=== PATIENT | female | born 1935 | race Caucasian/White ===

== ENCOUNTER 2018-12-17 16:50 | Observation (INO) | payer OTHER ==
--- NOTE | 2018-12-17 16:53 | PDOC ---
History of Present Illness - General Chief Complaint: Syncope/Near Syncope Stated Complaint: SYNCOPE Time Seen by Provider: 12/17/18 16:51 - History of Present Illness Initial Comments: 83yo F with PMH of HTN presenting after a syncopal episode. The episode occurred one hour prior to arrival. Patient has been outside for the [employer] in the hot weather. Patient had a cup of tea this morning, but admittedly did not eat or drink very much. After two bites of a hotdog, patient suddenly felt lightheaded and felt like she was going to pass out. She leaned on her who witnessed her lose consciousness for about thirty seconds. He denies seeing her exhibit any jerking/shaking motion consistent with seizure- like activity but did notice that she seemed to be hiccuping. Patient had one episode of NBNB vomit and did not feel like herself until about a half hour after the syncopal episode. Did not fall or hit her head. No history of prior syncopal episodes. Past History - Past Medical History Allergies/Adverse Reactions: Allergies Allergy/AdvReac Type Severity Reaction Status Date / Time No Known Allergies Allergy Verified 12/17/18 16:53 Home Medications: Ambulatory Orders Alendronate Sodium/Vitamin D3 [Fosamax Plus D 70 mg-5,600 Iu vIT d] 1 each PO Q7D 12/17/18 Olmesartan/Hydrochlorothiazide [Benicar Hct 40-12.5 mg Tablet] 1 each PO DAILY 12/17/18 Timolol Maleate 1 drop OU AM 12/17/18 Travoprost [Travatan Z] 1 drop OU HS 12/17/18 HTN: Yes - Surgical History Abdominal Surgery: Yes (HERNIA) Appendectomy: Yes - Suicide/Smoking/Psychosocial Hx Smoking History: Never smoked Hx Alcohol Use: Yes (RARE) Drug/Substance Use Hx: No Substance Use Type: None Review of Systems - Review of Systems Comments:: Constitutional: no fever, no chills HEENT: no throat pain, no dysphagia Cardiovascular: no chest pain, no palpitations Respiratory: no cough, no shortness of breath Gastrointestinal: no abdominal pain, no nausea Genitourinary: no dysuria, no frequency Musculoskeletal: no myalgia, no arthralgia Skin: no rash, no itching Neurologic: no headache, +syncope *Physical Exam - Physical Exam Comments: General: Awake, alert, and fully oriented, in no acute distress Head: No signs of trauma Eyes: EOMI, sclera anicteric ENT: Moist mucus membranes Neck: Normal ROM, supple Lungs: Lungs clear, Normal breath sounds Cardio: Regular rhythm, S1 and S2 present Abdomen: Soft, nontender. No guarding, no rebound, no masses Extremities: Normal range of motion, Distal pulses present SKIN: Warm, Dry, normal turgor Neurologic: Cranial nerves II through XII intact. Normal speech, sensation, coordination, speech, gait. ED Treatment Course - LABORATORY CBC & Chemistry Diagram: 12/18/18 06:00 12/18/18 06:00 Medical Decision Making - Medical Decision Making 83yo F with PMH of HTN presenting after a syncopal episode. DDX including but not limited to vasovagal syncope, cardiogenic syncope, metabolic syncope, neurogenic syncope, postural syncope, seizure EKG Labs VS WNL 1L NS Likely admission for syncope 12/17/18 17:31 EKG: rate 94, QTc 472, NSR CXR without acute pathology, my impression 12/17/18 18:14 Patient signed out to night team *DC/Admit/Observation/Transfer Diagnosis at time of Disposition: Syncope - Discharge Dispostion Condition at time of disposition: Stable - Referrals - Patient Instructions - Post Discharge Activity
[2018-12-17] MEDS ORDERED: SODIUM CHLORIDE 1,000 ML IV STA (17:14)
--- NOTE | 2018-12-17 17:18 | PDOC ---
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 Pt was at a [facility] following the [employer] day parade where her was officiating. She reports after taking a few bites of a hot dog while sitting on a bench, she began to feel very lightheaded. She told her she was feeling woozy and put her head on his shoulder at which point she passed out. Her reports she began to slump forward and he pulled her back from falling. He then states she began heaving and vomited once while unconscious. She was out for about 30 secs and then came back to. Did not fall or strike her head. She felt lightheaded for about 30 mins afterwards, but not feels back to her baseline. She states she did not drink a lot of water today and that it was very warm outside. Denies any preceding headache, palpitations, SOB, CP. Pt was in her USOH until this occurred. Has never had a syncopal episode before. Denies focal weakness/ numbness, abd pain, N/V/D, LE edema. No recent travel or immobility. - Physicial Exam PE: 12/17/18 18:01 GENERAL: Awake, alert, and fully oriented, in no acute distress HEAD: No signs of trauma EYES: PERRLA, EOMI, sclera anicteric, conjunctiva clear ENT:Nares patent, oropharynx clear without exudates. Moist mucosa NECK: Normal ROM, supple, no lymphadenopathy, JVD, or masses LUNGS: Breath sounds equal, clear to auscultation bilaterally. No wheezes, and no crackles HEART: Regular rate and rhythm, normal S1 and S2, no murmurs, rubs or gallops ABDOMEN: Soft, nontender, normoactive bowel sounds. No guarding, no rebound. No masses EXTREMITIES: Normal range of motion, trace symmetric pitting edema b/l to mid calves. No cords, erythema, or tenderness NEUROLOGICAL: Normal speech, cranial nerves intact, equal strength and sensation b/l. Normal, steady gait SKIN: Warm, Dry, normal turgor, no rashes or lesions noted. - Medical Decision Making 12/17/18 18:02 83yo F hx HTN, glaucoma presents to the ED with syncopal episode Vitals unremarkable Exam as noted EKG with normal intervals, no ischemia DDx includes cardiac arrhythmia vs dehydration vs vasovagal syncope Plan for cardiac monitoring, labs, tele obs admission Heart Score/ECG Review #1 12/17/18 18:07 Twelve-lead EKG was performed and reviewed by me. Normal sinus rhythm, rate 94. Normal axis and intervals. No ST elevations. T wave inversion in aVL.
[2018-12-17 17:51] LABS: EOS % 3.6 % (0-4.5); HEMATOCRIT 41.6 % (32.4-45.2); HEMOGLOBIN 13.9 GM/dl (10.7-15.3); LYMPH % 18.8 % (8-40); MCH 30.7 pg (25.7-33.7); MCHC 33.5 g/dl (32.0-36.0); MEAN CELL VOLUME 91.9 fl (80-96); MEAN PLT VOLUME 8.5 fl (7.5-11.1); MONO % 6.2 % (3.8-10.2); NEUT % 70.4 % (42.8-82.8); PLATELET COUNT 244 K/MM3 (134-434); RBC 4.53 M/mm3 (3.60-5.2); RDW 13.1 % (11.6-15.6); WHITE BLOOD COUNT 10.5 K/mm3 (4.0-10.8)
[2018-12-17 18:00] LABS: ALBUMIN 3.9 g/dl (3.4-5.0); BILIRUBIN,TOTAL 0.8 mg/dl (0.2-1); CALCIUM 8.9 mg/dl (8.5-10); CREATININE 1.5 mg/dl (0.55-1.3); POTASSIUM 4.2 mmol/L (3.5-5.1); TOT PROT 7.8 g/dl (6.4-8.2)
--- NOTE | 2018-12-17 19:20 | PDOC ---
*Physical Exam - Vital Signs Last Vital Signs Temp Pulse Resp BP Pulse Ox 98 F 89 18 125/58 L 96 12/17/18 16:50 12/17/18 18:55 12/17/18 18:55 12/17/18 18:55 12/17/18 18:55 ED Treatment Course - LABORATORY CBC & Chemistry Diagram: 12/17/18 17:30 12/17/18 17:30 - ADDITIONAL ORDERS Additional order review: Laboratory Results 12/17/18 12/17/18 17:30 17:30 Sodium 137 Potassium 4.2 Chloride 100 Carbon Dioxide 24 Anion Gap 13 BUN 25 H Creatinine 1.5 H Est GFR (CKD-EPI)AfAm 37.21 Est GFR (CKD-EPI)NonAf 32.11 Random Glucose 123 H Calcium 8.9 Total Bilirubin 0.8 AST 19 ALT 20 Alkaline Phosphatase 57 Troponin I < 0.03 Total Protein 7.8 Albumin 3.9 12/17/18 17:30 RBC 4.53 MCV 91.9 MCHC 33.5 RDW 13.1 MPV 8.5 Neutrophils % 70.4 Lymphocytes % 18.8 Monocytes % 6.2 Eosinophils % 3.6 Basophils % 1.0 - Medications Given in the ED: ED Medications Discontinued Medications Generic Name Dose Route Start Last Admin Trade Name Freq PRN Reason Stop Dose Admin Sodium Chloride 1,000 mls @ 1,000 mls/hr 12/17/18 17:14 12/17/18 17:35 Normal Saline - IV 12/17/18 18:13 1,000 mls/hr ASDIR STA Administration Progress Note - Progress Note Progress Note: Care of this patient received from . Case discussed with QAMAR Turk of [facility]. Patient will be admitted in observation status (telemetry), 's service. Noncontrast head CT performed: Chronic microvascular ischemic changes but no evidence of acute intracranial pathology. No fracture. *DC/Admit/Observation/Transfer Diagnosis at time of Disposition: Syncope Qualifiers: Syncope type: unspecified Qualified Code(s): R55 - Syncope and collapse - Discharge Dispostion Condition at time of disposition: Stable Decision to Admit order: Yes - Referrals - Patient Instructions - Post Discharge Activity
--- NOTE | 2018-12-17 19:32 | HP ---
Admitting History and Physical - Primary Care Physician PCP: Coy Espino - Admission Chief Complaint: Syncope History of Present Illness: This is a 83 y/o woman with a past medical history of Hypertension, Glaucoma, OA , Basal Cell Ca. Who presents to the ED with a syncopal episode. Per the patient she was attending an outdoor event and felt hot and dizzy. She remembers taking a bite from a hotdog then becoming nauseous and vomiting, leaning onto her . He reports she passed out for 30 seconds. Both denied head trauma. Patient reports having numbness to her upper body- resolved now. Patient denies slurred speech, facial droop. Patient denies chills, SOB, CP, palpitations, AP, diarrhea, constipation, dysuria. History Source: Patient, Family Member Limitations to Obtaining History: No Limitations - Past Medical History Cardiovascular: Yes: HTN Musculoskeletal: Yes: Osteoarthritis Dermatology: Yes: Basal Cell Additional Past Medical History: Glaucoma - Past Surgical History Past Surgical History: Yes: Appendectomy (2001), Cataract Removal (b/l), Hernia Repair (2003) Additional Past Surgical History: Partial Thyroidectomy, Parathyroidectomy Mohs (Left Nare) Trabeculectomy - Smoking History Smoking history: Former smoker Have you smoked in the past 12 months: No If you are a former smoker, when did you quit?: 40 yrs ago - Alcohol/Substance Use Hx Alcohol Use: Yes (RARE) History of Substance Use: reports: None - Social History Usual Living Arrangement: Yes: With Spouse ADL: Independent Occupation: Retired Nurse History of Recent Travel: No Home Medications - Allergies Allergies/Adverse Reactions: Allergies Allergy/AdvReac Type Severity Reaction Status Date / Time No Known Allergies Allergy Verified 12/17/18 16:53 - Home Medications Home Medications: Ambulatory Orders Alendronate Sodium/Vitamin D3 [Fosamax Plus D 70 mg-5,600 Iu vIT d] 1 each PO Q7D 12/17/18 Olmesartan/Hydrochlorothiazide [Benicar Hct 40-12.5 mg Tablet] 1 each PO DAILY 12/17/18 Timolol Maleate 1 drop OU AM 12/17/18 Travoprost [Travatan Z] 1 drop OU HS 12/17/18 Review of Systems - Review of Systems Constitutional: reports: Diaphoresis Eyes: reports: Blurred Vision HENT: reports: No Symptoms Neck: reports: No Symptoms Cardiovascular: reports: No Symptoms Respiratory: reports: No Symptoms Gastrointestinal: reports: Nausea, Vomiting Genitourinary: reports: No Symptoms Breasts: reports: No Symptoms Reported Musculoskeletal: reports: Back Pain (chronic) Integumentary: reports: No Symptoms Neurological: reports: Dizziness, Numbness, Syncope Endocrine: reports: No Symptoms Hematology/Lymphatic: reports: No Symptoms Psychiatric: reports: No Symptoms Pain Intensity: 4 Physical Examination Vital Signs: Vital Signs Temperature 98 F 12/17/18 16:50 Pulse Rate 89 12/17/18 18:55 Respiratory Rate 18 12/17/18 18:55 Blood Pressure 125/58 L 12/17/18 18:55 O2 Sat by Pulse Oximetry (%) 96 12/17/18 18:55 Constitutional: Yes: Well Nourished, No Distress, Calm, Obese Eyes: Yes: WNL, Conjunctiva Clear, EOM Intact, PERRL HENT: Yes: WNL, Atraumatic, Normocephalic Neck: Yes: WNL, Supple, Trachea Midline Cardiovascular: Yes: WNL, Regular Rate and Rhythm, S1, S2 Respiratory: Yes: WNL, Regular, CTA Bilaterally Gastrointestinal: Yes: WNL, Normal Bowel Sounds, Soft, Abdomen, Obese ...Rectal Exam: Yes: Deferred Renal/: Yes: WNL Breast(s): Yes: WNL Musculoskeletal: Yes: WNL Extremities: Yes: WNL Edema: No Peripheral Pulses WNL: Yes Integumentary: Yes: WNL Neurological: Yes: WNL, Alert, Oriented, Cran Nerves II-XII Intact ...Motor Strength: WNL Psychiatric: Yes: WNL, Alert, Oriented Labs: CBC, BMP 12/17/18 17:30 12/17/18 17:30 Laboratory Results - last 24 hr 12/17/18 12/17/18 12/17/18 17:30 17:30 17:30 WBC 10.5 RBC 4.53 Hgb 13.9 Hct 41.6 MCV 91.9 MCH 30.7 MCHC 33.5 RDW 13.1 Plt Count 244 MPV 8.5 Absolute Neuts (auto) 7.4 Neutrophils % 70.4 Lymphocytes % 18.8 Monocytes % 6.2 Eosinophils % 3.6 Basophils % 1.0 Sodium 137 Potassium 4.2 Chloride 100 Carbon Dioxide 24 Anion Gap 13 BUN 25 H Creatinine 1.5 H Est GFR (CKD-EPI)AfAm 37.21 Est GFR (CKD-EPI)NonAf 32.11 Random Glucose 123 H Calcium 8.9 Total Bilirubin 0.8 AST 19 ALT 20 Alkaline Phosphatase 57 Troponin I < 0.03 Total Protein 7.8 Albumin 3.9 Urine Color Urine Appearance Urine pH Urine Protein Urine Glucose (UA) Urine Ketones Urine Blood Urine Nitrite Urine Bilirubin Urine Urobilinogen Ur Leukocyte Esterase Urine RBC Urine WBC Ur Transition Epith Cell 12/17/18 12/17/18 20:30 23:00 WBC RBC Hgb Hct MCV MCH MCHC RDW Plt Count MPV Absolute Neuts (auto) Neutrophils % Lymphocytes % Monocytes % Eosinophils % Basophils % Sodium Potassium Chloride Carbon Dioxide Anion Gap BUN Creatinine Est GFR (CKD-EPI)AfAm Est GFR (CKD-EPI)NonAf Random Glucose Calcium Total Bilirubin AST ALT Alkaline Phosphatase Troponin I < 0.03 Total Protein Albumin Urine Color Yellow Urine Appearance Slightly Urine pH 5.0 Urine Protein 1+ H Urine Glucose (UA) Negative Urine Ketones Negative Urine Blood Trace-intact Urine Nitrite Negative Urine Bilirubin Negative Urine Urobilinogen 0.2 Ur Leukocyte Esterase 1+ Urine RBC 2-5 Urine WBC 5-10 Ur Transition Epith Cell Few Intake & Output 12/15/18 12/16/18 12/17/18 12/18/18 23:59 23:59 23:59 23:59 Output Total 2 Balance -2 Weight 79.379 kg Current Medications Generic Name Dose Route Start Last Admin Trade Name Freq PRN Reason Stop Dose Admin Non-Formulary Medication 1 drop 12/18/18 07:00 Timolol Maleate [Timolol Maleate] OU AM [facility] Non-Formulary Medication 1 drop 12/17/18 22:00 Travoprost [Travatan Z] OU HS [facility] Imaging - Results Chest X-ray: Image Reviewed Cat Scan: Pending EKG: Image Reviewed Problem List - Problems (1) Syncope Assessment/Plan: Likely secondary to Dehydration vs Vasovagal vs Arrhythmia Continue cardiac monitoring Serial Enzymes neg x1, will trend Appreciate Cardiology consult EKG- NSR with no acute changes CXR image- no infiltrate, no effusion Order Head CT- pending Carotid Doppler- in am Echo r/o wall motion abnormalities Monitor CBC, BMP Neurochecks Orthostatics Fall Precautions Code(s): R55 - SYNCOPE AND COLLAPSE Qualifiers: Syncope type: unspecified Qualified Code(s): R55 - Syncope and collapse (2) DOMINIC (acute kidney injury) Assessment/Plan: Likely secondary to Dehydration NS bolus given in ED Monitor BMP Will hold ARB and HCTZ for now, reassess tomorrow Code(s): N17.9 - ACUTE KIDNEY FAILURE, UNSPECIFIED (3) HTN (hypertension) Assessment/Plan: stable Monitor BP Hold home meds secondary to DOMINIC Code(s): I10 - ESSENTIAL (PRIMARY) HYPERTENSION (4) Osteoarthritis Assessment/Plan: stable Tylenol prn Code(s): M19.90 - UNSPECIFIED OSTEOARTHRITIS, UNSPECIFIED SITE (5) Glaucoma Assessment/Plan: stable Continue home meds Code(s): H40.9 - UNSPECIFIED GLAUCOMA Assessment/Plan This is a 83 y/o woman PMHx of HTN, OA, Glaucoma. Placed in Tele Observation for Syncope, DOMINIC for further evaluation of their emergent condition. Plan: See Problem List FEN PO fluids as tolerated Replete lytes prn Low Na Diet DVT ppx OOB SCDs Consider AC if LOS > 48 hrs Dispo: Observation Visit type - Emergency Visit Emergency Visit: Yes ED Registration Date: 12/17/18 Care time: The patient presented to the Emergency Department on the above date and was hospitalized for further evaluation of their emergent condition. - New Patient This patient is new to me today: Yes Date on this admission: 12/17/18 - Critical Care Critical Care patient: No
[2018-12-17 20:55] LABS: EPITHELIAL CELLS FEW /hpf
[2018-12-17] MEDS ORDERED: PATIENT'S OWN MEDICATION (NON-FORMULARY) (Travoprost [Travatan Z] 1 DROP) OU SCH (22:00)
[2018-12-18] MEDS ORDERED: TIMOLOL MALEATE OU SCH (07:00)
--- NOTE | 2018-12-18 08:24 | CON.CARD ---
Consult Consult Specialty:: cardio - History of Present Illness Chief Complaint: syncope History of Present Illness: 83 F here with syncope. was standing at outdoor event yesterday watching parade for about 1 hr in hot sun. then sitting in shade another hour or so. usually drinks about 64 oz water throughout the day--did not have water with her yesterday. felt ok. then went to park where was seated and took a bit of hot dog--felt very weak and felt LH. leaned head onto 's shoulder and briefly passed out. he estimated to her she was unresponsive for at most 30 seconds. was in USOH when regained consciousness. denies assctd palp/cp/sob. no hot/flushing intense feeling at that time. no new neuro deficits. no nausea/vomiting, fecal urgency. similar episode happened 2 other times in past 12 mo or so, both times in hot/ humid weather (once at [place], once in [place])--never fainted then however she admits to decr ET the past couple of months, stops briefly for breathlessness after 2 blocks walking. never chest pain VS's in ER and overnight WNL labs in ER notable for elev bun and creatinine. trop neg x 2 PMH: HTN glaucoma - Past Medical History Cardio/Vascular: Yes: HTN Musculoskeletal: Yes: Osteoarthritis Dermatology: Yes: Basal Cell - Past Surgical History Past Surgical History: Yes: Appendectomy (2001), Cataract Removal (/l), Hernia Repair (2003) - Alcohol/Substance Use Hx Alcohol Use: Yes (RARE) History of Substance Use: reports: None - Smoking History Smoking history: Former smoker Have you smoked in the past 12 months: No If you are a former smoker, when did you quit?: 40 yrs ago - Social History ADL: Independent Occupation: Retired Nurse History of Recent Travel: No Home Medications - Allergies Allergies/Adverse Reactions: Allergies Allergy/AdvReac Type Severity Reaction Status Date / Time No Known Allergies Allergy Verified 12/17/18 16:53 - Home Medications Home Medications: Ambulatory Orders Alendronate Sodium/Vitamin D3 [Fosamax Plus D 70 mg-5,600 Iu vIT d] 1 each PO Q7D 12/17/18 Olmesartan/Hydrochlorothiazide [Benicar Hct 40-12.5 mg Tablet] 1 each PO DAILY 12/17/18 Timolol Maleate 1 drop OU AM 12/17/18 Travoprost [Travatan Z] 1 drop OU HS 12/17/18 Family Disease History - Family Disease History Family History: Denies (no known cmp) Review of Systems - Review of Systems Constitutional: denies: Chills, Fever Eyes: denies: Eye Pain HENT: denies: Nasal Congestion Neck: denies: Stiffness Cardiovascular: denies: Palpitations Respiratory: denies: Orthopnea, PND Gastrointestinal: denies: Diarrhea, Rectal Bleeding Genitourinary: denies: Burning, Hematuria Musculoskeletal: denies: Muscle Pain Integumentary: denies: Rash Neurological: denies: Numbness, Seizure Endocrine: denies: Excessive Sweating Hematology/Lymphatic: denies: Excessive Bleeding Vital Signs: Vital Signs Temperature 97.9 F 12/18/18 05:00 Pulse Rate 86 12/18/18 05:00 Respiratory Rate 19 12/18/18 05:00 Blood Pressure 132/53 L 12/18/18 05:00 O2 Sat by Pulse Oximetry (%) 95 12/18/18 06:26 Constitutional: Yes: Well Nourished, No Distress Eyes: No: Sclera Icterus HENT: No: Nasal Congestion Neck: No: Decreased ROM Respiratory: Yes: CTA Bilaterally. No: Accessory Muscle Use, Rales, Wheezes Gastrointestinal: Yes: Normal Bowel Sounds. No: Distention, Hepatomegaly, Palpable Mass, Tenderness Cardiovascular: Yes: Regular Rate and Rhythm JVD: No Carotid Bruit: No PMI: Non-Displaced Heart Sounds: Yes: S1, S2. No: Gallop Murmur: No: Systolic Murmur, Diastolic Murmur Musculoskeletal: Yes: Other (No kyphosis) Extremities: No: Cool, Cyanosis Edema: No Peripheral Pulses: 2+ Left Carotid, 2+ Right Carotid, 2+ Left Doralis Pedis, 2+ Right Dorsalis Pedis Integumentary: No: Jaundice Neurological: Yes: Alert, Oriented (x3) Psychiatric: No: Agitated - Other Data Labs, Other Data: CBC, BMP 12/17/18 17:30 12/17/18 17:30 Troponin, BNP 12/17/18 12/17/18 17:30 23:00 Troponin I < 0.03 < 0.03 Troponin, BNP 12/17/18 12/17/18 17:30 23:00 Troponin I < 0.03 < 0.03 Laboratory Tests 12/17/18 12/17/18 12/17/18 17:30 17:30 17:30 WBC 10.5 Hgb 13.9 Plt Count 244 Sodium 137 Potassium 4.2 Carbon Dioxide 24 BUN 25 H Creatinine 1.5 H AST 19 ALT 20 Troponin I < 0.03 12/17/18 23:00 WBC Hgb Plt Count Sodium Potassium Carbon Dioxide BUN Creatinine AST ALT Troponin I < 0.03 Assessment/Plan CT head: no acute pathology CXR: clear lungs/pleura ECG: NSR, normal axis/intervals. no path q's. no ST-T abn tele: NSR, no events syncope: -in setting of prolonged heat exposure, minimal fluid intake, creat slightly up from baseline, pt on diuretic -+ prodrome per hpi -likely vasovagal episode triggered by relative vascular depletion, blood pooling in legs. tom since similar prodrome occurred 2x before also on hot/ humid weather exposure -recent decr in ET with mild breathlessness noted -requires echo for LV function to risk stratify. doubt given no murmur ( despite somewhat decr'd heart sounds). -if echo normal and tele benign, pt ok for d/c tomorrow -no signs or sx's of myocardial ischemia here. advised she should have routine MPI to r/o anginal equivalent ([place]) but can be done as outpatient as this has been a stable sx with no acute exacerbations here -rec'd she incr po fluids intake routinely. consider decr HCTZ dose as outpt CKD: -creat 1.3 on prior labs 2018, slightly higher here. -? thiazide contributing -routine outpt monitoring HTN: -bp controlled, fairly wide pulse pressure -will f/u with us -will cont same ARB/hctz regimen for now, with incr po fluids precautions advised -will f/u with us in office--consider decr HCTZ at that time depending on labs and bp trend
[2018-12-18 09:43] LABS: CALCIUM 8.2 mg/dl (8.5-10); CREATININE 1.2 mg/dl (0.55-1.3); MAGNESIUM 1.9 mg/dL (1.8-2.4); PHOSPHOROUS 3.9 mg/dl (2.5-4.9); POTASSIUM 3.7 mmol/L (3.5-5.1)
--- NOTE | 2018-12-18 11:25 | PN ---
Physical Exam: SUBJECTIVE: Patient seen and examined at bedside. Indore mildly lightheaded earlier today when walking. OBJECTIVE: Vital Signs Period Temp Pulse Resp BP Sys/Jasmine Pulse Ox Last 24 Hr 97.8 F-98.2 F 76-103 16-24 116-142/52-72 95-98 GENERAL: The patient is awake, alert, and fully oriented, in no acute distress. LUNGS: Breath sounds equal, clear to auscultation bilaterally, no wheezes, no crackles, no accessory muscle use. HEART: Regular rate and rhythm, S1, S2 ABDOMEN: Soft, nontender, nondistended EXTREMITIES: 2+ pulses, warm, well-perfused, no edema. NEUROLOGICAL: Cranial nerves II through XII grossly intact. Normal speech, gait not observed. Laboratory Results - last 24 hr 12/17/18 12/17/18 12/17/18 17:30 17:30 17:30 WBC 10.5 RBC 4.53 Hgb 13.9 Hct 41.6 MCV 91.9 MCH 30.7 MCHC 33.5 RDW 13.1 Plt Count 244 MPV 8.5 Absolute Neuts (auto) 7.4 Neutrophils % 70.4 Lymphocytes % 18.8 Monocytes % 6.2 Eosinophils % 3.6 Basophils % 1.0 Sodium 137 Potassium 4.2 Chloride 100 Carbon Dioxide 24 Anion Gap 13 BUN 25 H Creatinine 1.5 H Est GFR (CKD-EPI)AfAm 37.21 Est GFR (CKD-EPI)NonAf 32.11 Random Glucose 123 H Calcium 8.9 Phosphorus Magnesium Total Bilirubin 0.8 AST 19 ALT 20 Alkaline Phosphatase 57 Troponin I < 0.03 Total Protein 7.8 Albumin 3.9 Urine Color Urine Appearance Urine pH Urine Protein Urine Glucose (UA) Urine Ketones Urine Blood Urine Nitrite Urine Bilirubin Urine Urobilinogen Ur Leukocyte Esterase Urine RBC Urine WBC Ur Transition Epith Cell 12/17/18 12/17/18 12/18/18 20:30 23:00 06:00 WBC RBC Hgb Hct MCV MCH MCHC RDW Plt Count MPV Absolute Neuts (auto) Neutrophils % Lymphocytes % Monocytes % Eosinophils % Basophils % Sodium 138 Potassium 3.7 Chloride 104 Carbon Dioxide 23 Anion Gap 11 BUN 22 H Creatinine 1.2 Est GFR (CKD-EPI)AfAm 48.74 Est GFR (CKD-EPI)NonAf 42.05 Random Glucose 76 Calcium 8.2 L Phosphorus 3.9 Magnesium 1.9 Total Bilirubin AST ALT Alkaline Phosphatase Troponin I < 0.03 Cancelled Total Protein Albumin Urine Color Yellow Urine Appearance Slightly Urine pH 5.0 Urine Protein 1+ H Urine Glucose (UA) Negative Urine Ketones Negative Urine Blood Trace-intact Urine Nitrite Negative Urine Bilirubin Negative Urine Urobilinogen 0.2 Ur Leukocyte Esterase 1+ Urine RBC 2-5 Urine WBC 5-10 Ur Transition Epith Cell Few 12/18/18 06:00 WBC RBC Hgb Hct MCV MCH MCHC RDW Plt Count MPV Absolute Neuts (auto) Neutrophils % Lymphocytes % Monocytes % Eosinophils % Basophils % Sodium Potassium Chloride Carbon Dioxide Anion Gap BUN Creatinine Est GFR (CKD-EPI)AfAm Est GFR (CKD-EPI)NonAf Random Glucose Calcium Phosphorus Magnesium Total Bilirubin AST ALT Alkaline Phosphatase Troponin I < 0.03 Total Protein Albumin Urine Color Urine Appearance Urine pH Urine Protein Urine Glucose (UA) Urine Ketones Urine Blood Urine Nitrite Urine Bilirubin Urine Urobilinogen Ur Leukocyte Esterase Urine RBC Urine WBC Ur Transition Epith Cell Current Medications Generic Name Dose Route Start Last Admin Trade Name Freq PRN Reason Stop Dose Admin Hydrochlorothiazide 12.5 mg 12/19/18 12:30 Hctz - PO DAILY [facility] Losartan Potassium 100 mg 12/18/18 11:30 12/18/18 11:45 Cozaar - PO 100 mg DAILY [facility] Administration Non-Formulary Medication 1 drop 12/18/18 07:00 Timolol Maleate [Timolol Maleate] OU AM [facility] Non-Formulary Medication 1 drop 12/17/18 22:00 Travoprost [Travatan Z] OU HS [facility] ASSESSMENT/PLAN 83 year-old female with a PMH significant for HTN, HLD, CKD, hematuria, OA, and hyperparathyroidism s/p parathyroidectomy (2014). Placed on observation for a syncopal episode. Syncope --in setting of prolonged heat exposure and decreased fluid intake; not orthostatic today --troponins neg x 3 --ECG: no indication of acute ischemic event --Echo pending --continue telemetry monitoring --cardiology following --CT head unremarkable --US carotid pending Hypertension --BP stable --continue losartan (formulary equivalent of home ARB), continue HCTZ Hyperlipidemia --previously on Crestor but stopped due to intolerance --not presently on statin therapy CKD --previous workup by Dr. Quiñones --Cr peak 1.5, today 1.2 Hematuria --previous workup by Dr. Pacheco who recommended cystoscopy, patient declined FEN Fluids: PO intake adequate Electrolytes: replete as indicated Nutrition: low sodium DVT prophylaxis: subq heparin Dispo: continues to require observation. Full code. Visit type - Emergency Visit Emergency Visit: Yes ED Registration Date: 12/17/18 Care time: The patient presented to the Emergency Department on the above date and was hospitalized for further evaluation of their emergent condition. - New Patient This patient is new to me today: Yes Date on this admission: 12/18/18 - Critical Care Critical Care patient: No
[2018-12-18] MEDS ORDERED: HYDROCHLOROTHIAZIDE 12.5 MG CAPSULE (FP) PO SCH (11:30)
[2018-12-18 11:36] LABS: BASO % 0.5 % (0-2.0); EOS % 3.1 % (0-4.5); HEMATOCRIT 40.2 % (32.4-45.2); HEMOGLOBIN 13.3 GM/dL (10.7-15.3); LYMPH % 30.6 % (8-40); MCH 30.1 pg (25.7-33.7); MEAN CELL VOLUME 91.1 fl (80-96); MEAN PLT VOLUME 8.6 fl (7.5-11.1); NEUT % 56.8 % (42.8-82.8); PLATELET COUNT 199 K/MM3 (134-434); RBC 4.42 M/mm3 (3.60-5.2); RDW 13.7 % (11.6-15.6)
[2018-12-18] MEDS: LOSARTAN POTASSIUM 50 MG TABLET (FP) PO SCH (11:45)
[2018-12-18] MEDS: HEPARIN NA (PORCINE) 5,000 UNITS/ML 1ML VIAL SQ SCH ×2 (14:12→21:56)
--- NOTE | 2018-12-18 15:10 | EKG ---
Test Reason : Blood Pressure : / mmHG Vent. Rate : 094 BPM Atrial Rate : 094 BPM P-R Int : 154 ms QRS Dur : 076 ms QT Int : 378 ms P-R-T Axes : 043 -16 079 degrees QTc Int : 472 ms NORMAL SINUS RHYTHM MINIMAL VOLTAGE CRITERIA FOR LVH, MAY BE NORMAL VARIANT BORDERLINE ECG WHEN COMPARED WITH ECG OF 28-JAN-2008 15:53, NO SIGNIFICANT CHANGE WAS FOUND Confirmed by BOBO GOMES, AMELIA ([id number]) on 12/18/2018 3:10:27 PM Referred By: JJ Confirmed By:AMELIA BROUSSARD MD
[2018-12-19] MEDS: HEPARIN NA (PORCINE) 5,000 UNITS/ML 1ML VIAL SQ SCH ×2 (05:50→14:01)
[2018-12-19] MEDS: LOSARTAN POTASSIUM 50 MG TABLET (FP) PO SCH ×2 (09:32→14:01)
[2018-12-19] MEDS ORDERED: HYDROCHLOROTHIAZIDE 12.5 MG CAPSULE (FP) PO SCH ×2 (09:45→12:30)
--- NOTE | 2018-12-19 12:50 | DS ---
Physical Exam: SUBJECTIVE: Patient seen and examined OBJECTIVE: Vital Signs Period Temp Pulse Resp BP Sys/Jasmine Pulse Ox Last 24 Hr 97.6 F-98.1 F 68-80 16-20 110-150/51-66 98-99 PHYSICAL EXAM GENERAL: The patient is awake, alert, and fully oriented, in no acute distress. LUNGS: Breath sounds equal, clear to auscultation bilaterally, no wheezes, no crackles, no accessory muscle use. HEART: Regular rate and rhythm, S1, S2 ABDOMEN: Soft, nontender, nondistended EXTREMITIES: 2+ pulses, warm, well-perfused, no edema. NEUROLOGICAL: Cranial nerves II through XII grossly intact. Normal speech, gait not observed. LABS CBCD WBC 8.0 K/mm3 (4.0-10.0) 12/18/18 06:00 RBC 4.42 M/mm3 (3.60-5.2) 12/18/18 06:00 Hgb 13.3 GM/dL (10.7-15.3) 12/18/18 06:00 Hct 40.2 % (32.4-45.2) 12/18/18 06:00 MCV 91.1 fl (80-96) 12/18/18 06:00 MCHC 33.0 g/dl (32.0-36.0) 12/18/18 06:00 RDW 13.7 % (11.6-15.6) 12/18/18 06:00 Plt Count 199 K/MM3 (134-434) 12/18/18 06:00 MPV 8.6 fl (7.5-11.1) 12/18/18 06:00 CMP Sodium 138 mmol/L (136-145) 12/18/18 06:00 Potassium 3.7 mmol/L (3.5-5.1) 12/18/18 06:00 Chloride 104 mmol/L (98-107) 12/18/18 06:00 Carbon Dioxide 23 mmol/L (21-32) 12/18/18 06:00 Anion Gap 11 MMOL/L (8-16) 12/18/18 06:00 BUN 22 mg/dl (7-18) H 12/18/18 06:00 Creatinine 1.2 mg/dl (0.55-1.3) 12/18/18 06:00 Calcium 8.2 mg/dl (8.5-10) L 12/18/18 06:00 Total Bilirubin 0.8 mg/dl (0.2-1) 12/17/18 17:30 AST 19 U/L (15-37) 12/17/18 17:30 ALT 20 U/L (13-61) 12/17/18 17:30 Alkaline Phosphatase 57 U/L (45-117) 12/17/18 17:30 Total Protein 7.8 g/dl (6.4-8.2) 12/17/18 17:30 Albumin 3.9 g/dl (3.4-5.0) 12/17/18 17:30 HOSPITAL COURSE: Date of Admission:12/17/18 Date of Discharge: 12/19/18 Pre hospital course 83 year-old female with a PMH significant for HTN, HLD, CKD, hematuria, OA, and hyperparathyroidism s/p parathyroidectomy (2014). Placed on observation for a syncopal episode. Subsequent hospital course Syncope --in setting of prolonged heat exposure and decreased fluid intake --troponins neg x 3 --ECG: no indication of acute ischemic event --no events on telemetry --CT head unremarkable --US carotid: mild athersclerotic disease with no hemodynamically significant stenosisn --seen and evaluated by cardiology: no s/s of myocardial ischemia, should have routine MPI as outpatient Diastolic dysfunction --Echo: LV normal, EF 60%, Grade I diastolic dysfunction; RV normal; small pericardial effusion <1cm Hypertension --mildly orthostatic, dc'd HCTZ at time of discharge, will follow up with Dr. Cox --continued ARB Hyperlipidemia --previously on Crestor but stopped due to intolerance --not presently on statin therapy CKD --previous workup by Dr. Quiñones --Cr peak 1.5--> 1.2 Hematuria --previous workup by Dr. Pacheco who recommended cystoscopy, patient declined Minutes to complete discharge: 35 Discharge Summary Reason For Visit: SYNCOPE Current Active Problems DOMINIC (acute kidney injury) (Acute) Glaucoma (Acute) HTN (hypertension) (Acute) Osteoarthritis (Acute) Syncope (Acute) Condition: Improved - Instructions Diet, Activity, Other Instructions: It is important you stay well-hydrated. Drink plenty of fluids. You should STOP taking hydrochlorothiazide as this is a diuretic and may drop your blood pressure. Continue to hold this medication until you followup with Dr. Cox. A prescription has been sent to your pharmacy for olmesartan. Take this medication as directed, again, until you follow up with Dr. Cox. Return to the emergency department for any new or worsening symptoms. Referrals: Rigo Cox MD [Staff Physician] - Disposition: HOME - Home Medications Comprehensive Discharge Medication List: Ambulatory Orders Alendronate Sodium/Vitamin D3 [Fosamax Plus D 70 mg-5,600 Iu vIT d] 1 each PO Q7D 12/17/18 Olmesartan/Hydrochlorothiazide [Benicar Hct 40-12.5 mg Tablet] 1 each PO DAILY 12/17/18 Timolol Maleate 1 drop OU AM 12/17/18 Travoprost [Travatan Z] 1 drop OU HS 12/17/18 This patient is new to me today: No Emergency Visit: Yes ED Registration Date: 12/17/18 Care time: The patient presented to the Emergency Department on the above date and was hospitalized for further evaluation of their emergent condition. Critical Care patient: No - Discharge Referral Referred to [facility] No
--- NOTE | 2018-12-19 13:27 | ECHO ---
Version: 1 Name: MERY GLORIA Exam: Adult Echocardiogram Study Date: 12/19/2018, 12:18 PM Age: 83 Years MMode/2D Measurements & Calculations IVSd: 1.19 cm LVIDs: 2.9 cm LVIDd: 4.2 cm LVPWd: 1.16 cm LVOT diam: 2.06 cm Ao root diam: 2.7 cm LA dimension: 3.4 cm Doppler Measurements & Calculations MV E max brenden: 71.7 cm/sec MV A max brenden: 121.2 cm/sec MV E/A: 0.59 Ao max P.3 mmHg DELANEY(I,D): 1.69 cm Ao mean P.6 mmHg LV V1 mean: 82.0 cm/sec Ao V2 max: 236.0 cm/sec LV V1 mean P.0 mmHg Procedure A complete two-dimensional transthoracic echocardiogram was performed (2D, M-mode, Doppler and color flow Doppler). Left Ventricle Left ventricular systolic function is normal. Ejection Fraction = 60%. Grade I diastolic dysfunction , (abnormal relaxation pattern). Right Ventricle The right ventricle is normal in size and function. Atria Normal left and right atrial size and function. Mitral Valve The mitral valve is normal in structure and function. There is no mitral regurgitation noted. Tricuspid Valve The tricuspid valve is normal in structure and function. There was insufficient TR detected to calcu late RV systolic pressure. Aortic Valve There is moderate aortic sclerosis.;. Pulmonic Valve The pulmonic valve is normal in structure and function. Great Vessels The aortic root is normal size. Pericardium/Pleura Small pericardial effusion (<1cm). There are no echocardiographic indications of cardiac tamponade. Summary Statements Left ventricular systolic function is normal. Small pericardial effusion (<1cm) There are no echocardiographic indications of cardiac tamponade. The right ventricle is normal in size and function. Kai Oakley 12/19/2018, 12:26 PM Ordering Physician: Yina Callahan Referring Physician: YINA CALLAHAN Performed By: ASHLEY
[2018-12-19 14:03] VITALS: BP 123/83; PULSE 72; TEMP 97.8
== END 2018-12-19 15:02 | disposition home or self-care (01) ==
LOC: FER 16:50 → FM/S 19:20
PROVIDERS: ADMIT Internal Medicine; ATTEND Nurse Practitioner Acute Care
PROC: 3E0337Z Introduction of Electrolytic and Water Balance Substance into Peripheral Vein, Percutaneous Approach (ICD-10-PCS; principal; 2018-12-17)
DX: R55 Syncope and collapse (principal); I12.9 Hypertensive chronic kidney disease with stage 1 through stage 4 chronic kidney disease, or unspecified chronic kidney disease; N18.9 Chronic kidney disease, unspecified; N17.9 Acute kidney failure, unspecified; E78.5 Hyperlipidemia, unspecified; M19.90 Unspecified osteoarthritis, unspecified site; H40.9 Unspecified glaucoma; R31.9 Hematuria, unspecified; Z87.891 Personal history of nicotine dependence
CPT/HCPCS: 36415; 70450-TC; 71045-TC-FY; 80048; 80053; 81003; 81015; 83735; 84100; 84443; 84484; 85025; 87086; 87186; 93005; 93306-TC; 93880-TC; 96360; 99285-25; G0378; J1644; J7030

== ENCOUNTER 2019-07-20 06:50 | Emergency (ER) | payer OTHER ==
--- NOTE | 2019-07-20 07:30 | PDOC ---
Attending Attestation - Resident Resident Name: JenningsHector - ED Attending Attestation I have performed the following: I have examined & evaluated the patient, The case was reviewed & discussed with the resident, I agree w/resident's findings & plan, Exceptions are as noted - HPI HPI: 07/20/19 07:41 83y F hx of htn presents with palpitations. Pt woke up with an episode of palpittions, sensation of anxiety, claustrophobia after waking up from a dream, had a brief episode of palpitations that has since resolved. Pt denies any complaints including any associated shortness of breath, dyspnea exertion, nausea, vomiting, diaphoresis, chest pain, abdominal pain, back pain, focal numbness, tingling, weakness, fever, chills, cough. Patient notes that the symptoms lasted for approximately 5 to 10 minutes and resolved by time EMS arrived. Patient denies having any similar symptoms in the past. Patient states she is currently asymptomatic. Patient last had a visit with Dr. Mendoza approximately 2 months ago and had a set of labs done, she also had a cardiac work-up done including a stress test and echo in November that was negative. Patient notes that she is fairly active and has never had any exertional symptoms. GENERAL: The patient is awake, alert, and fully oriented, Nontoxic - in no acute distress. HEAD: Normocephalic, atraumatic. EYES: extraocular movements intact, sclera anicteric, conjunctiva clear. ENT: Normal voice, Moist mucous membranes. NECK: Normal range of motion, supple LUNGS: Breath sounds equal, clear to auscultation bilaterally. No wheezes, no rhonchi, no rales. HEART: Regular rate and rhythm, normal S1 and S2 without murmur, rub or gallop. ABDOMEN: Soft, nontender, No guarding, no rebound. No CVA tenderness EXTREMITIES: Normal range of motion, no edema. NEUROLOGICAL: No facial assymetry, Normal speech, PSYCH: Normal mood, normal affect. SKIN: Warm, Dry, normal turgor, The patient's symptoms may be secondary to anxiety/residual dream upon wakening , consider in her differential possible metabolic derangements, acute coronary syndrome. As the patient has a recent lab work that was normal metabolic derangement is unlikely. The patient's EKG here is noted for normal sinus rhythm without any signs suggestive of ACS. Her lack of exertional symptoms and negative cardiac work-up this year was also reassuring. We will have the patient follow-up with Dr. Espino - Physicial Exam PE: 07/22/19 17:57 see above - Medical Decision Making 07/22/19 17:57 see above Heart Score/ECG Review - ECG Impressions Comment:: 07/20/19 08:34 Twelve-lead EKG was performed and reviewed by me. There is normal sinus rhythm with a normal rate. The axis is normal. The intervals are normal. There is normal R wave progression There are no ST or T wave abnormalities. Impression: Normal twelve-lead EKG
[2019-07-20 07:31] VITALS: TEMP 98.2; BMI 30.9
--- NOTE | 2019-07-20 08:07 | PDOC ---
History of Present Illness - General Chief Complaint: Palpitations Stated Complaint: HIGH BP Time Seen by Provider: 07/20/19 07:17 History Source: Patient, Spouse ( at bedside.) Exam Limitations: No Limitations - History of Present Illness Initial Comments: HPI: 83 y/o female presenting to [facility] ER complaining of a resolved episode of anxiousness with a regular but slightly elevated pulse rate. Pt states she was having a dream of being on an airplane with omer closing in on her. She awoke feeling anxious. Denies associated chest pain, back pain, of difficulty breathing. Symptoms have all resolved by the time of this interview. Denies similar symptoms, but reports her husbands 80th birthday democrat is this weekend, and the preparations are causing increased stress. Occupation: - Retired nurse Medical Hx: - HTN - Glaucoma Review of Systems: In addition to that documented in the HPI above, the additional ROS was obtained : Constitutional- Denies fevers or chills Head- Denies vision changes ENMT- Denies sore throat CV- Denies chest pain Resp- Denies SOB GI- Denies vomiting or diarrhea - Denies painful urination MSK- Denies recent trauma Skin- Denies new rashes Neuro- Denies new numbness or tingling or weakness Endocrine- Denies polyuria Heme- Denies bleeding or bruising Physical Examination: Vital signs and nursing notes reviewed. Constitutional- Well-developed, well-nourished adult female in no acute distress or obvious discomfort. Found semi-fowlers on hospital bed. Answered all questions appropriately and completely. Head- Normocephalic. No obvious external signs of trauma. Eyes- Sclerae white. Neck- Supple, trachea is midline. No JVD. Cardiovascular / Chest- Regular rate and regular rhythm. No murmur, rubs, clicks , or gallops. Peripheral pulses- radial pulses full. Trace pretibial edema bilaterally. Respiratory- Breathing unlabored. Equal chest rise and fall. Clear to auscultation bilaterally. No stridor, no wheezing, no rhonchi. Gastrointestinal- abdomen is soft, non-tender, non-distended. Neuro- Alert and oriented x4. Moving all four extremities spontaneously. No facial asymmetry. No slurred speech. Skin- Warm, dry, and intact. Psych- Affect- appropriate. Mood- normal. Speech was non-labored, non- pressured. Dressed and groomed appropriately. MDM: 83 y/o female presenting with self-limited episode of anxiety and sensation of fast HR after nightmare. Afebrile. Vitals unremarkable for hypotension or tachycardia. Physical exam as described above. Well appearing. EKG unremarkable for tachycardia or acute ischemic findings. Low suspicion for ACS, arrhythmia, aortic dissection, or PE. Suspect episode may be related to dream and/or concerns about upcoming birthday democrat. Discussed EKG and physical exam findings with pt. Answered all questions. Provided return precautions. pt expressed verbal understanding and agreement with plan to discharge home with outpatient follow up. Provided copies of today s results. Hector Jennings M.D., PGY2 Emergency Medicine Resident Past History - Past Medical History Allergies/Adverse Reactions: Allergies Allergy/AdvReac Type Severity Reaction Status Date / Time No Known Allergies Allergy Verified 12/17/18 16:53 Home Medications: Ambulatory Orders Alendronate Sodium/Vitamin D3 [Fosamax Plus D 70 mg-5,600 Iu vIT d] 1 each PO Q7D 12/17/18 Timolol Maleate 1 drop OU AM 12/17/18 Travoprost [Travatan Z] 1 drop OU HS 12/17/18 Olmesartan Medoxomil 40 mg PO DAILY #30 tablet 12/19/18 CVA: No COPD: No HTN: Yes Thyroid Disease: Yes Other medical history: galcoma - Surgical History Abdominal Surgery: Yes (HERNIA) Appendectomy: Yes - Psycho Social/Smoking Cessation Hx Smoking History: Smoker current status UNK Have you smoked in the past 12 months: No If you are a former smoker, when did you quit?: 40 yrs ago Information on smoking cessation initiated: No Hx Alcohol Use: No Drug/Substance Use Hx: No Substance Use Type: None *Physical Exam - Vital Signs Last Vital Signs Temp Pulse Resp BP Pulse Ox 98.2 F 98 H 18 155/78 98 07/20/19 07:23 07/20/19 07:23 07/20/19 07:23 07/20/19 07:23 07/20/19 07:23 Discharge - Discharge Information Problems reviewed: Yes Clinical Impression/Diagnosis: Palpitations Condition: Improved Disposition: HOME - Admission No - Follow up/Referral Referrals: Coy Espino MD [Primary Care Provider] - - Patient Discharge Instructions Patient Printed Discharge Instructions: DI for Anxiety -- Adult Additional Instructions: You were seen today for an episode of anxiousness and tachycardia after a bad dream. The symptoms resolved without medical intervention. Continue to take your home medications as previously prescribed by your primary care physician. You should follow up with your doctor in the next few days if the symptoms continue. Return to the emergency department for new or worsening symptoms. Print Language: GHANAIAN - Post Discharge Activity
[2019-07-20 09:04] VITALS: BP 126/59; PULSE 100
--- NOTE | 2019-07-20 13:42 | EKG ---
Test Reason : Blood Pressure : / mmHG Vent. Rate : 094 BPM Atrial Rate : 094 BPM P-R Int : 178 ms QRS Dur : 082 ms QT Int : 378 ms P-R-T Axes : 050 -14 077 degrees QTc Int : 472 ms NORMAL SINUS RHYTHM NORMAL ECG WHEN COMPARED WITH ECG OF 17-DEC-2018 17:20, NO SIGNIFICANT CHANGE WAS FOUND Confirmed by ANN TERAN MD ([id number]) on 07/20/2019 1:42:28 PM Referred By: Confirmed By:ANN TERAN MD
== END 2019-07-20 09:25 | disposition home or self-care (01) ==
LOC: JER 06:50
DX: F41.9 Anxiety disorder, unspecified (principal); I10 Essential (primary) hypertension
CPT/HCPCS: 93005; 93010; 99282-25